=== PATIENT | male | born 1970 | race Caucasian/White ===

== ENCOUNTER 2023-11-20 17:01 | Observation (INO) | payer OTHER ==
[~2023-11-20] VITALS: Ht 162.6 cm; Wt 71.5 kg
[~2023-11-20 17:01] MED LIST: AMBIEN 10MG10 MG PO; AMBIEN CR 12.12.5 MG PO; AMBIEN CR6.25 MG PO; ARTANE 2MG2 MG PO; ASPIRIN 81M81 MG/TA2 PO; BRILINTA90 MG PO; CLEOCIN HCL300 MG PO; COGENTIN .0.5 MG/TAB PO; COGENTIN 1MG1 MG/TAB PO; FLEXERIL 1010 MG/TAB PO; FLORINEF ACETA0.1 MG PO; HALDOL 1MG T1 MG/TAB PO; IBU800 M1 PO; LEVAQUIN 5500 MG/TA1 PO; LEXAPRO20 MG PO; LIPITOR 40MG TA40 MG PO; LOPRESSOR 225 MG/TAB PO; LOPRESSOR 550 MG/TAB PO; MELAT3MGTAB PO; MINIPRESS2 MG PO; NEURONTIN300 MG/CAP PO; NORCO 325 MG-51 TAB PO; PERIACTIN 4MG TA4 MG PO; PROAMATINE10 MG PO; PROZAC 10MG10 MG PO; REMERON 15M15 MG/TA1 PO; REQUIP 0.5MG0.5 MG PO; REQUIP 1MG T1 MG/TAB PO; REQUIP XL8 MG PO; ROBAXIN 50500 MG/TAB PO; TRANSZONE3 MG PO; TYLENOL 500MG500 MG PO; ZYRTEC 10MG10 MG PO; ZYRTEC5 MG PO
[2023-11-20] MEDS ORDERED: NS 1,000 ML IV ONE (17:15)
[2023-11-20 17:34] LABS: BASO % 0.7 % (0.0-2.0); EOS # 0.2 K/mm3 (0.0-0.7); EOS % 3.6 % (0.0-4.0); GRAN # 3.8 K/mm3 (1.4-6.5); GRAN % 62.1 % (42.2-75.2); HEMATOCRIT 40.2 % (42.0-52.0); HEMOGLOBIN 13.6 g/dl (13.5-18.0); LYMPH # 1.4 K/mm3 (1.2-3.4); LYMPH % 23.4 % (20.0-51.0); MEAN CELL VOLUME 80 fl (80.0-100.0); MEAN CORPUSCULAR HEMOGLOBIN 27 pg (27-31); MEAN CORPUSCULAR HGB CONC 34 g/dl (33.0-37.0); MEAN PLATELET VOLUME 10.1 fl (7.4-10.4); MONO # 0.6 K/mm3 (0.1-0.6); PLATELET COUNT 196 K/mm3 (130-400); RED BLOOD COUNT 5.01 M/mm3 (4.20-5.60); REDCELL DISTRIBUTION WIDTH-CV 12.8 % (11.5-14.5)
[2023-11-20 17:35] LABS: INR 1.1 (0.8-3.0); PROTHROMBIN TIME 12.4 SECONDS (9.7-12.8)
[2023-11-20 17:46] LABS: ALANINE AMINOTRANSFERASE 15 U/L (0-55); ALBUMIN 3.7 g/dL (3.5-5.0); ALKALINE PHOSPHATASE 105 U/L (40-150); ANION GAP 9 mmol/L (7-16); AST,SGOT 16 U/L (5-34); BILIRUBIN,TOTAL 0.3 mg/dL (0.2-1.2); BLOOD UREA NITROGEN 20 mg/dL (8-26); CHLORIDE 106 mEq/L (98-107); CREATININE, serum 1.23 mg/dL (0.72-1.25); GLUCOSE 97 mg/dL (70-99); LIPASE 43 U/L (8-78); SODIUM 139 mEq/L (136-145); TOTAL PROTEIN 7.2 g/dl (6.2-8.1)
[2023-11-20 17:53] LABS: TROPONIN-I < 0.010 ng/mL (0.00-0.033)
[2023-11-20] MEDS ORDERED: Polyethylene Glycol 3350 17 GM PDS PO PRN (19:30)
[2023-11-20] MEDS ORDERED: Cetirizine 10 MG TAB PO PRN (19:30)
[2023-11-20] MEDS ORDERED: Docusate Sodium 100 MG CAP PO PRN (19:30)
[2023-11-20] MEDS ORDERED: Ondansetron 4 MG/2 ML VIAL IV PRN (19:30)
[2023-11-20] MEDS ORDERED: Cyproheptadine 4 MG TAB PO PRN (19:30)
[2023-11-20] MEDS ORDERED: Acetaminophen 325 MG TAB PO PRN (19:30)
[2023-11-20] MEDS ORDERED: MOBIC 7.5MG7.5 MG PO (19:52)
--- NOTE | 2023-11-20 20:37 | NUR ---
NAVEED FROM ER RETURNED PRIMARY NURSE CALL FOR REPORT AT THIS TIME.
--- NOTE | 2023-11-20 20:50 | NUR ---
PATIENT ARRIVED VIA WHEELCHAIR TO ROOM #307 FROM ER. PATIENT ASSISTED TO BED WITH STAND BY ASSIST. PATIENT GAIT STEADY. TELEMETRY INTACT. INT TO RIGHT AC INTACT WITH NO ACUTE DISTRESS NOTED. PATIENT VERBALIZED UNDERSTANDING OF CALL LIGHT AND BED CONTROLS. PATIENT GIVEN SANDWICH TRAY, PITCHER OF WATER, AND PEPSI. PATIENT CLAUDIO ANY OTHER NEEDS AT THIS TIME. BED IN LOW POSITION WITH WHEELS LOCKED WITH RAILS UP X2 AND CALL LIGHT WITHIN REACH.
[2023-11-20 20:57] VITALS: BP 115/70; PULSE 60; TEMP 98.3
[2023-11-20 21:00] VITALS: BP_SYST 115
[2023-11-20] MEDS ORDERED: Trihexyphenidyl 2 MG TAB PO SCH (21:00)
[2023-11-20] MEDS ORDERED: Gabapentin 300 MG CAP PO SCH (21:00)
[2023-11-20] MEDS ORDERED: Atorvastatin 20 MG TAB PO SCH (21:00)
[2023-11-20] MEDS ORDERED: Mirtazapine 15 MG TAB PO SCH (21:00)
--- NOTE | 2023-11-20 21:20 | NUR ---
PATIENT RESTING IN BED WATCHING TV WITH NO FAMILY PRESENT WITH NO ACUTE DISTRESS NOTED. PATIENT ON ROOM AIR. INT TO RIGHT AC INTACT WITH NO COMPLICATIONS NOTED. TELEMTRY INTACT. INITAL INTAKE, ASSESSMENT, AND MEDICATION ADMINISTRATION COMPLETED AT THIS TIME. PATIENT TOLERATED WELL. PATIENT REQUESTED HIS HOME DOSE OF AMBIEN. PATIENT VERBALIZED UNDERSTANDING THAT HOSPITALIST WOULD BE CALLED. PATIENT DENIES ANY OTHER NEEDS AT THIS TIME. BED IN LOW POSITION WITH WHEELS LOCKED WITH RAILS UP X2 AND CALL LIGHT WITHIN REACH.
--- NOTE | 2023-11-20 21:21 | NUR ---
HOSPITALIST CHETNA ESCALANTE CALLED FOR PATIENT REQUEST FOR HIS HOME AMBIEN. ORDER RECIEVED FOR 9MG OF MELATONIN PO.
[2023-11-20] MEDS ORDERED: Melatonin 3 MG TAB PO SCH (21:34)
[2023-11-20 22:00] VITALS: BP 116/75; PULSE 62
--- NOTE | 2023-11-20 22:14 | NUR ---
PATIENT RESTING IN BED WITH TV ON WITH NO FAMILY PRESENT WITH NO ACUTE DISTRESS NOTED. PATIENT ON ROOM AIR. INT TO RIGHT AC INTACT WITH NO COMPLICATIONS NOTED. TELEMTRY INTACT. MELATONIN, ZYRTEC AND MEDICATION ADMINISTRATION COMPLETED AT THIS TIME. PATIENT TOELRATED WELL. ALL NEEDS MET. BED IN LOW POSITION WITH WHEELS LOCKED WITH RAILS UP X2 AND CALL LIGHT WITHIN REACH.
[2023-11-20 23:26] VITALS: BP 113/7; BP 113/77; PULSE 62; TEMP 97.6
[2023-11-21] VITALS (24 sets, daily range): BP systolic 101–134; BP diastolic 69–91; PULSE 57–109; TEMP 97.4–98.7
[2023-11-21 07:01] LABS: CALCIUM 8.6 mg/dL (8.4-10.2); CREATININE, serum 0.97 mg/dL (0.72-1.25); POTASSIUM 3.7 mEq/L (3.5-4.5)
[2023-11-21] MEDS ORDERED: FLUoxetine 10 MG TAB PO SCH (09:00)
[2023-11-21 11:34] LABS: CHOLESTEROL RISK RATIO 5.4
[2023-11-21] MEDS ORDERED: Regadenoson 0.08 MG/ML 5 ML SYRINGE IV SCH (12:40)
[2023-11-21] MEDS ORDERED: Vancomycin 1 GM VIAL IR SCH (15:20)
[2023-11-21] MEDS ORDERED: NS 100 ML IV.SOLN. IR SCH (15:21)
--- NOTE | 2023-11-21 15:36 | NUR ---
Please see merge documentation for record of interventions, vitals and medications administered during loop removal and replacement with Dr. Sloan
[2023-11-21] MEDS ORDERED: fentaNYL 50 MCG/ML 2 ML VIAL IV SCH (15:47)
[2023-11-21] MEDS ORDERED: Midazolam 2 MG/2 ML VIAL IV SCH (15:48)
--- NOTE | 2023-11-21 15:54 | NUR ---
Coil Assembler met with patient to discuss discharge planning. Patient lives in [place] with his , Jackelyn (ph#[phone]) and goes to [facility] on [address] for primary care. Patient uses [facility] in [place] for medications and does not use any DME. Patient is independent with ADLS and plans to return home at time of discharge. Patient does not have DPOA-HC and was not interested in completing one at this time. Patient is retired and has [employer] insurance. SW updated the financial team. Discharge Plan; Home
--- NOTE | 2023-11-21 16:12 | NUR ---
Yash is transferred back to medical floor rm 307 after loop removal and replacement. dressing is clean, dry and intact, site soft at edges of dressing. post procedure vitals initiated. vss. bs report and handoff of care to Kita LIRA. Ice pack to loop in/out site by Kita LIRA.
--- NOTE | 2023-11-21 19:00 | NUR ---
PATIENT RESTING IN BED SITTING UP WITH TV ON WITH NO FAMILY PRESENT WITH NO ACUTE DISTRESS NOTED. PATIENT ON ROOM AIR. INT TO RIGHT AC INTACT WITH NO COMPLICATIONS NOTED. TELEMETRY INTACT. DRESSING TO CENTER UPPER CHEST CLEAN, DRY, AND INTACT. PATIENT DENIES ANY NEEDS AT THIS TIME. PATIENT CARE ASSUMED FROM [facility]. BED IN LOW POSITION WITH WHEELS LOCKED WITH RAILS UP X3 AND CALL LIGHT WITHIN REACH.
--- NOTE | 2023-11-21 19:05 | NUR ---
PATIENT ASKED IF THE UNIT HAD A WOOD SCRAP HANDLER FOR AN ANDROID PHONE. PRIMARY NURSE INFORMED PATIENT THAT SHE HAD ONE IF HE WOULD LET HER TAKE HIS PHONE TO THE DESK TO CHARGE IT. PATIENT AGREED AND PRIMARY NUSED PLACED PHONE ON HER PERSONAL WOOD SCRAP HANDLER IN BREAK ROOM WITH STICKY NOTE IDENIFYING WHICH ROOM PHONE BELONGS TO.
--- NOTE | 2023-11-21 20:45 | NUR ---
PATIENT IN SITTING UP IN BED WITH TV OFF WITH NO FAMILY PRESENT WITH NO ACUTE DISTRESS NOTED. PATIENT ON ROOM AIR. INT TO RIGHT AC INTACT WITH NO COMPLICATIONS NOTED. TELEMETRY INTACT. DRESSING INTACT, CLEAN, AND DRY TO LEFT MIDDLE UPPER CHEST. ASSESSMENT AND MEDICATION ADMINISTRATION COMPLETED AT THIS TIME. PATIENT TOLERATED WELL. BLOOD PRESSURE CUFF TAKEN OFF PATIENT'S LEFT UPPER ARM AND VITAL SIGNS MACHINE REMOVED FROM ROOM. PATIENT ASKED ABOUT PHONE BEING CHARGE AND PRIMARY NURSE REPORTED THAT IT WAS AT 43% ALONG WITH HAVING 3 MORE HOURS. PATIENT REASSURED BY PRIMARY NURSE THAT SHE WOULD BRING HIS PHONE BACK ONCE CHARGED. PATIENT REQUESTED SANDWICH TRAY AND WAS GIVEN. PATIENT OFFERED ICE AND WATER WHICH PATIENT REFUSED. PATIENT DENIES ANY OTHER NEEDS. BED IN LOW POSITION WITH WHEELS LOCKED WITH RAILS UP X3 AND CALL LIGHT WITHIN REACH.
[2023-11-22 00:05] VITALS: BP_SYST 116
--- NOTE | 2023-11-22 01:00 | NUR ---
PATIENT PHONE RETURNED TO PATIENT ROOM AND PLACED ON BEDSIDE TABLE. PHONE 100% CHARGED. PATIENT RESTING WITH EYES CLOSED IN BED WITH NO ACUTE DISTRESS NOTED.
[2023-11-22 03:47] VITALS: BP 106/70; PULSE 63; TEMP 98.2
[2023-11-22 04:15] VITALS: BP_SYST 106
[2023-11-22 07:09] LABS: BASO % 0.7 % (0.0-2.0); CALCIUM 8.9 mg/dL (8.4-10.2); CREATININE, serum 1.02 mg/dL (0.72-1.25); EOS # 0.3 K/mm3 (0.0-0.7); EOS % 5.7 % (0.0-4.0); GRAN % 55.5 % (42.2-75.2); HEMOGLOBIN 13.2 g/dl (13.5-18.0); LYMPH # 1.5 K/mm3 (1.2-3.4); MEAN CELL VOLUME 81 fl (80.0-100.0); MEAN CORPUSCULAR HEMOGLOBIN 27 pg (27-31); MEAN CORPUSCULAR HGB CONC 33 g/dl (33.0-37.0); MEAN PLATELET VOLUME 10.5 fl (7.4-10.4); MONO # 0.5 K/mm3 (0.1-0.6); MONO % 9.7 % (1.7-9.3); PLATELET COUNT 205 K/mm3 (130-400); POTASSIUM 3.6 mEq/L (3.5-4.5); RED BLOOD COUNT 4.97 M/mm3 (4.20-5.60); REDCELL DISTRIBUTION WIDTH-CV 12.8 % (11.5-14.5)
[2023-11-22 07:21] VITALS: BP 122/75; PULSE 66; TEMP 98.2
--- NOTE | 2023-11-22 09:27 | NUR ---
Forestry Adviser attended clinical rounds with the team and patient will discharge home today.
[2023-11-22 11:20] VITALS: BP_SYST 122
--- NOTE | 2023-11-22 11:22 | NUR ---
PT RESTING IN BED WITH NO PAIN, DRESSING TO LEFT CHEST REMOVED BY CARDIOLOGY AND SUTURES DRY AND INTACT. PT STEADY GAIT AROUND ROOM, TOELRATING DEIT WELL, AND READY FOR DISCHARGE. IV REMOVED, DISCHARGE INFORMATION PROVIDED. DISCUSSED FOLLOW UP APPOINTMENTS, NEW MEDICATIONS, SIGNS OF INFECTION, AND NO WORK RESTRICTIONS. NO QUESTIONS AT THIS TIME. PT AND BELONGINGS ESCORTED OUT OF BUILDING.
== END 2023-11-22 11:20 | disposition home or self-care (01) ==
LOC: COL.ER 17:01 → MEDICAL 19:16
PROVIDERS: Nurse Practitioner; Physician Assistant; ADMIT Internal Medicine
DX: R55 Syncope and collapse (principal); R07.9 Chest pain, unspecified; I25.10 Atherosclerotic heart disease of native coronary artery without angina pectoris; I95.89 Other hypotension; E78.5 Hyperlipidemia, unspecified; I08.0 Rheumatic disorders of both mitral and aortic valves; G47.00 Insomnia, unspecified; F32.A Depression, unspecified; Z95.5 Presence of coronary angioplasty implant and graft; Z79.82 Long term (current) use of aspirin; Z79.899 Other long term (current) drug therapy
CPT/HCPCS: A9500-JZ; C1764; G0378; J2250; J2785; J3010; J3370; J7030

== ENCOUNTER 2024-05-15 16:58 | Emergency (ER) | payer OTHER ==
[~2024-05-15] VITALS: Ht 157.5 cm; Wt 68.2 kg
[~2024-05-15 16:58] MED LIST changes: +MOBIC 7.5MG7.5 MG PO
[2024-05-15 17:00] VITALS: PULSE 120
[2024-05-15 17:04] VITALS: TEMP 97.9
[2024-05-15 17:33] LABS: BASO % 0.6 % (0.0-2.0); EOS # 0.3 K/mm3 (0.0-0.7); EOS % 3.9 % (0.0-4.0); GRAN # 4.2 K/mm3 (1.4-6.5); GRAN % 63.2 % (42.2-75.2); HEMATOCRIT 40.2 % (42.0-52.0); HEMOGLOBIN 13.7 g/dl (13.5-18.0); LYMPH # 1.5 K/mm3 (1.2-3.4); LYMPH % 21.9 % (20.0-51.0); MEAN CELL VOLUME 82 fl (80.0-100.0); MEAN CORPUSCULAR HEMOGLOBIN 28 pg (27-31); MEAN CORPUSCULAR HGB CONC 34 g/dl (33.0-37.0); MEAN PLATELET VOLUME 9.9 fl (7.4-10.4); MONO # 0.7 K/mm3 (0.1-0.6); MONO % 10.2 % (1.7-9.3); PLATELET COUNT 204 K/mm3 (130-400); RED BLOOD COUNT 4.93 M/mm3 (4.20-5.60); REDCELL DISTRIBUTION WIDTH-CV 13.1 % (11.5-14.5)
[2024-05-15 17:54] LABS: ALBUMIN 3.7 g/dL (3.5-5.0); BILIRUBIN,TOTAL 0.5 mg/dL (0.2-1.2); CALCIUM 9.4 mg/dL (8.4-10.2); CREATININE, serum 1.01 mg/dL (0.72-1.25); POTASSIUM 3.8 mEq/L (3.5-4.5)
[2024-05-15 18:00] LABS: TROPONIN-I 0.011 ng/mL (0.00-0.033)
[2024-05-15] MEDS ORDERED: NS 1,000 ML IV ONE (18:15)
[2024-05-15 20:30] VITALS: BP 129/95; PULSE 64
== END 2024-05-15 20:37 | disposition home or self-care (01) ==
LOC: COL.ER 16:58
PROVIDERS: Nurse Practitioner
DX: R55 Syncope and collapse (principal)
CPT/HCPCS: J7030